=== PATIENT | male | born 1970 | race Caucasian/White ===

== ENCOUNTER 2022-07-02 18:30 | Emergency (ER) | payer OTHER ==
[~2022-07-02] VITALS: Ht 175.3 cm; Wt 108.9 kg
--- NOTE | 2022-07-02 18:50 | NUR ---
pt placed in chd at this time
[2022-07-02 18:51] VITALS: BP 154/85
--- NOTE | 2022-07-02 18:55 | NUR ---
52 y/o male biba from work, c/o thoughts of harming self, states he was at work anmd suddenly felt weak/overwhelmed. sat down and started having bl leg pain and back pain. denies plan to end life or wanting to harm others. pt is calm, coherent, a&ox4, ambulates with steady gait. states he uses marijuana, but denies alcohol or drug use today. c/o dysuria, n/v, cloudy urine. pmh: schizophrenia nka med: seroquel
[2022-07-02 19:28] LABS: BASOPHILS % (AUTO) 0.5 % (0.0-2.0); EOSINOPHILS # (AUTO) 0.1 K/uL (0-0.4); EOSINOPHILS % (AUTO) 1.9 % (0.0-4.0); HEMATOCRIT 39.2 % (36-52); HEMOGLOBIN 13.1 g/dL (12.0-18.0); LYMPHOCYTES # (AUTO) 2.5 K/uL (2.0-11.5); LYMPHOCYTES % (AUTO) 32.8 % (20.5-51.1); MEAN CORPUSCULAR HEMOGLOBIN 28 pg (27-31); MEAN CORPUSCULAR HGB CONC 33 g/dL (33-37); MEAN CORPUSCULAR VOLUME 84.7 fL (80-94); MONOCYTES # (AUTO) 0.5 K/uL (0.8-1.0); MONOCYTES % (AUTO) 6.8 % (1.7-9.3); NEUTROPHILS # (AUTO) 4.5 K/uL (1.8-7.7); PLATELET COUNT (AUTO) 411 K/uL (140-450); RED BLOOD CELL COUNT(AUTO) 4.62 MIL/uL (4.20-6.10); RED CELL DISTRIBUTION WIDTH 15.9 % (11.6-13.7); WHITE BLOOD COUNT (AUTO) 7.7 K/uL (4.8-10.8)
[2022-07-02 19:41] LABS: ALBUMIN 4.8 g/dL (3.4-5.0); ANION GAP 15.1 (8-16); ASPARTATE AMINOTRANSFERASE 27 U/L (15-37); CARBON DIOXIDE 23.9 mmol/L (21-32); CHLORIDE 103 mmol/L (98-107); CREATININE 1.2 mg/dL (0.6-1.3); GFR ARICAN-AMERICAN 82 mL/min (>90); GLUCOSE 85 mg/dL (74-106); SODIUM SERUM 138 mmol/L (136-145); TOTAL BILIRUBIN 0.5 mg/dL (0.0-1.0); UREA NITROGEN, BLOOD 13 mg/dL (7-18)
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
[2022-07-02 19:52] LABS: SALICYLATE < 2.8 mg/dL (2.8-20.0)
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
--- NOTE | 2022-07-02 20:00 | NUR ---
As Dr. Pollock is walking by, the pt yells out "am i gonna get help nigga, what kind of show are you running here, i didnt ask to be here."
--- NOTE | 2022-07-02 20:00 | NUR ---
52 Y/O M presents with throbbing bilateral leg and back pain xtoday. pt stated he has some weakness due to pain. pt is A&Ox4, skin intact, and stated he uses marijuana but denies any other drugs or alcohol. pt stated he has mental problems. PMH-schizophrenia NKA med- seroquel
--- NOTE | 2022-07-02 20:05 | NUR ---
as pt is sitting in a chair he continues to yell statements at Dr. Pollock stating " whats your name doctor im gonna brian you, are you chemo [place] or some shit?" Dr. Pollock stated "please stop harassing me"
--- NOTE | 2022-07-02 20:05 | NUR ---
as pt is yelling across the ER " im a grown man nesha" Dr. Pollock stated "put him in the lobby"
--- NOTE | 2022-07-02 20:50 | NUR ---
PT TAKEN TO ER BED 5
--- NOTE | 2022-07-02 21:00 | NUR ---
pt tolerating food well, in room in upright position.
--- NOTE | 2022-07-02 22:00 | NUR ---
pt ambulatory to restroom
--- NOTE | 2022-07-02 22:05 | NUR ---
pt back in room
[2022-07-02 23:08] LABS: APPEARANCE,URINE SL CLOUDY (CLEAR); BILIRUBIN,URINE NEGATIVE (NEGATIVE); BLOOD, URINE 2+ (NEGATIVE); COLOR,URINE YELLOW (YELLOW); LEUKOCYTE ESTERASE ,URINE NEGATIVE (NEGATIVE); NITRITE, URINE NEGATIVE (NEGATIVE); UGLUCOSE NEGATIVE (NEGATIVE)
[2022-07-02 23:19] LABS: BARBITURATE, URINE NEGATIVE ng/ml (NEG <=200)
[2022-07-02 23:20] LABS: BENZODIAZEPINE, URINE NEGATIVE ng/mL (NEG <=200); CANNABINOID, URINE POSITIVE ng/mL (NEG <=50); COCAINE, URINE NEGATIVE ng/mL (NEG <=300); OPIATE, URINE NEGATIVE ng/mL (NEG <=2000); PHENCYCLIDINE SCREEN,URINE NEGATIVE ng/mL (NEG <=25)
[2022-07-02 23:22] LABS: RBC,URINE 0-5 /HPF (0-5); WBC,URINE 0-5 /HPF (0-5)
--- NOTE | 2022-07-02 23:32 | NUR ---
PT STATED "YALL FUCKED UP" AND PULLED OUT A TUNA CAN THAT HAS NOT BEEN OPENED. PT CHECKED AGAIN, ALL ITEMS REMOVED. PT IS AGITATED AND CUSSING.
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
--- NOTE | 2022-07-03 02:17 | NUR ---
pt resting room
--- NOTE | 2022-07-03 03:57 | NUR ---
pt stated he has bilateral back and leg pain 6/10.
--- NOTE | 2022-07-03 03:57 | NUR ---
pt stated to Lizeth COOPER "you may not be nigga enough but you sure are beautiful to me and i will drink your bath water on a good day."
--- NOTE | 2022-07-03 03:58 | NUR ---
pt stated to Lizeth COOPER "i can tell you workout you have a 8% body fat on you. you are built right. i dont know what you are but you right/"
[2022-07-03] MEDS ORDERED: ACETAMINOPHEN EXTRA STRENGTH 500 MG TAB PO ONE (04:40)
--- NOTE | 2022-07-03 06:02 | NUR ---
pt in room resting
--- NOTE | 2022-07-03 07:15 | NUR ---
Pt report given to Valarie COOPER. Transfer of care at this time.
--- NOTE | 2022-07-03 07:20 | NUR ---
Report recieved from [facility] for transfer of care.
--- NOTE | 2022-07-03 07:58 | NUR ---
Patient was given breakfast tray. Patient is sitting up eating breakfast.
--- NOTE | 2022-07-03 08:56 | NUR ---
Dr. Hines, psychiatrist, will call back in a few hours.
--- NOTE | 2022-07-03 09:46 | NUR ---
RAFI SPEAKING TO PT AT THIS TIME FOR TELEHEALTH
--- NOTE | 2022-07-03 09:50 | NUR ---
Per Dr. Umana, patient needs to be transfered to [facility] facility
--- NOTE | 2022-07-03 09:51 | NUR ---
Patient ambulated to restroom.
--- NOTE | 2022-07-03 12:16 | NUR ---
Patient was offered lunch tray. Patient is sitting up eating lunch.
--- NOTE | 2022-07-03 15:19 | NUR ---
SPOKE WITH BRENDA FROM [facility], STATES SHE WILL CALL BACK
--- NOTE | 2022-07-03 17:30 | NUR ---
Patient is hungry and offered snacks.
--- NOTE | 2022-07-03 18:05 | NUR ---
Stacey turner in [facility] - 07/03/22 at 1855 by [facility] pt glucose 104, given orange juice, crackers, jello
--- NOTE | 2022-07-03 19:20 | NUR ---
Report given to [facility] for transfer of care.
--- NOTE | 2022-07-03 19:24 | NUR ---
Report given to [facility].
--- NOTE | 2022-07-03 19:44 | NUR ---
amr at bedside awaiting transfer
[2022-07-03 19:51] VITALS: BP 138/70
--- NOTE | 2022-07-03 19:59 | NUR ---
Patient to be transferred to [facility] psych. Is being transferred due to higher level of care. Receiving facility has accepting physician and available space. ER physician has signed transfer form. Patient or responsible republican has agreed to transfer and signed form. Patient belongings inventoried and will be sent with patient. Copy of nursing notes, lab reports, EKG, Physicians Orders and X-rays to be sent with patient. Report called to stacey rn at receiving facility. [facility] has been called for transfer. ETA is one hour.
== END 2022-07-03 19:59 ==
LOC: MED 18:30
DX: R45.851 Suicidal ideations (principal); F20.9 Schizophrenia, unspecified; Z20.822 Contact with and (suspected) exposure to COVID-19; F12.90 Cannabis use, unspecified, uncomplicated
CPT/HCPCS: 36415; 80053; 80305; 81001; 85025; 87426; 87635; 93005; 99285; C9803; G0480; G0482